=== PATIENT | male | born 1955 | race Caucasian/White ===

== ENCOUNTER → 2019-06-01 | Outpatient (CLI) | payer MEDICARE ==
--- NOTE | 2019-06-02 04:47 | CT ---
EXAMINATION TYPE: CT angio thor/abd pel aorta DATE OF EXAM: 06/01/2019 COMPARISON: None HISTORY: 64-year-old male with abdominal aortic aneurysm without rupture, Aneurysm, Hx of stent sx. TECHNIQUE: Contiguous axial scanning of the chest, abdomen, and pelvis performed with IV Contrast, pa tient injected with 100 mL of Isovue 370. Delayed scan through the patient's abdominal aortic stent g raft. Coronal/sagittal reconstructions performed. 3-D reconstructions generated on a dedicated [employer] workstation. CT DLP: 1080 mGycm Automated exposure control for dose reduction was used. FINDINGS: Chest: Heart normal size without pericardial effusion. Scattered coronary vessel calcifications are present. Moderate bilateral gynecomastia. No thoracic lymphadenopathy. Left anterior chest wall AICD generator with right ventricular lead. Thoracic aorta normal caliber with conventional arch vessel branching anatomy and scattered mild pros tatic calcifications. Mild diffuse bronchial wall thickening without consolidation or pleural effusion. 4 mm pulmonary nodule posterior right mid to lower lung, axial image 39. Some additional lobulated 8 mm subpleural nodularity at the same level in the right lower lobe. A 5 mm in adjacent 4 mm pulmonary nodule along the minor fissure, axial image 29 and 30. Findings can be reassessed in 6 months. ABDOMEN: Arterial phase imaging of the liver, gallbladder, adrenal glands, right kidney, spleen, and pancreas show no gross abnormal mobility. A couple subcentimeter hypodensities along the lower pole cortex of the left kidney 2 small fragments in relation, likely cysts. No dilated small bowel, free fluid, or free air. No mesenteric or retroperitoneal lymphadenopathy. Normal appendix. Mild stool burden. Left-sided colonic diverticulosis, greatest in the sigmoid colon where long segment circumferential wall thickening is present. No surrounding inflammatory fat strand ing. Pelvis: Bladder is urine distended. A few pelvic phleboliths. Prostate gland measures 4.4 cm wide. No abnorma l fluid collection in the pelvis or pelvic lymphadenopathy. ABDOMINOPELVIC VASCULATURE: Upper abdominal aorta borderline ectatic at 2.5 cm. Mild to moderate atherosclerotic narrowing at the origin of celiac axis. Mild atherosclerotic narrowing at the origin of the SMA. Abdominal aortobiiliac stent graft begins at the level of the renal arteries. Maximal stent graft axel meter is 3.1 cm. Just below, maximal stebbins sac diameter is 4.2 x 2.9 cm. No abnormal contrast extens ion seen within the stebbins sac. Along the right iliac landing zone, an additional common iliac artery stent is demonstrated. Bones: Patchy AVN changes suggested along the anterior femoral heads on both sides. No subarticular collapse is seen. Degenerative changes in the hips and left SI joint. Facet arthropathy mid to lower lumbar s pine. [facility] in the mid to lower thoracic spine. IMPRESSION: 1. ABDOMINAL AORTOBIILIAC ENDOVASCULAR STENT GRAFT BEGINNING AT THE LEVEL OF THE RENAL ARTERIES. MAXI MAL STENT GRAFT DIAMETER IS 3.1 CM. 2. JUST BELOW, MAXIMAL L[place] SAC DIAMETER IS 4.2 X 2.9 CM. THIS CAN BE COMPARED TO ANY AVAILABLE OUT SIDE PRIORS. 3. AN ADDITIONAL PATENT RIGHT COMMON ILIAC ARTERY STENT WITHIN THE STENT GRAFT. 4. A FEW RIGHT-SIDED PULMONARY NODULES, LARGEST MEASURING [address] IN 6-[address] IN 1 8-24 MONTHS IS RECOMMENDED PER CURRENT FLEISCHNER GUIDELINES. 5. LEFT-SIDED COLONIC DIVERTICULOSIS, GREATEST IN THE SIGMOID COLON WHERE LONG SEGMENT CIRCUMFERENTIA L WALL THICKENING IS PRESENT. FINDINGS SUGGEST CHRONIC DIVERTICULITIS. CLINICALLY CORRELATE.
== END | disposition home or self-care (01) ==
LOC: RADCTMAIN 13:10
PROVIDERS: ATTEND Internal Medicine Interventional Cardiology
DX: K57.30 Diverticulosis of large intestine without perforation or abscess without bleeding (principal); R91.8 Other nonspecific abnormal finding of lung field; Z95.828 Presence of other vascular implants and grafts
CPT/HCPCS: 82565; 84520; 71275; 36415; 74174; Q9967

== ENCOUNTER → 2022-05-09 | Outpatient (CLI) | payer MEDICARE ==
[2022-05-09 14:27] LABS: Basophils # (A) 0.05 X 10*3/uL (0.00-0.10); Basophils % (A) 0.6 %; Eosinophils # (A) 0.29 X 10*3/uL (0.04-0.35); Eosinophils % (A) 3.5 %; HGB 12.8 g/dL (13.0-17.0); Immature Grans, Automated 0.4 %; Lymphocytes # (A) 2.22 X 10*3/uL (0.90-5.00); Lymphocytes % (A) 27.1 %; MCH 32.5 pg (27.0-32.0); MCHC 33.7 g/dL (32.0-37.0); MCV 96.4 fL (80.0-97.0); Mean Platelet Volume 9.6 fL (9.5-12.2); Monocytes # (A) 0.88 X 10*3/uL (0.20-1.00); Monocytes % (A) 10.7 %; NRBC Per 100 WBC 0 /100 WBCS (0.0-0.0); Neutrophils # (A) 4.72 X 10*3/uL (1.80-7.70); Neutrophils % (A) 57.7 %; Platelet Count 226 X 10*3/uL (140-440); RBC 3.94 X 10*6/uL (4.40-5.60); RDW 13.4 % (11.5-14.5); WBC 8.19 X 10*3/uL (4.50-10.00)
[2022-05-09 14:47] LABS: African American GFR (CKD) 100.6 (60.0-200.0); BUN/Creat Ratio 25.22 Ratio (12.00-20.00); Blood Urea Nitrogen 22.7 mg/dL (9.0-27.0); Calcium 9.8 mg/dL (8.7-10.3); Carbon Dioxide 25.5 mmol/L (20.0-27.5); Chloride 101 mmol/L (96-109); Glucose 158 mg/dL (70-110); Non-African American GFR(CKD) 86.8 (60.0-200.0); Potassium 4.4 mmol/L (3.5-5.5); Sodium 138 mmol/L (135-145)
== END | disposition home or self-care (01) ==
LOC: LABWHC1 08:57
PROVIDERS: ATTEND Internal Medicine Interventional Cardiology
DX: I25.10 Atherosclerotic heart disease of native coronary artery without angina pectoris (principal); R53.83 Other fatigue
CPT/HCPCS: 36415; 80048; 84443; 85025

== ENCOUNTER → 2022-05-29 | Outpatient (CLI) | payer MEDICARE ==
[2022-05-29 13:18] LABS: African American GFR (CKD) >90 (>60 ml/min/1.73 sqM); Blood Urea Nitrogen 36 mg/dL (9-20); Non-African American GFR(CKD) 80 (>60 ml/min/1.73 sqM)
--- NOTE | 2022-05-29 22:35 | CT ---
EXAMINATION TYPE: CT angio abdomen pelvis DATE OF EXAM: 05/29/2022 COMPARISON: Prior CTA June 01, 2019 HISTORY: Abdominal Aortic Aneurysm without rupture CT DLP: 1975.0 mGycm, Automated Exposure Control for Dose Reduction was Utilized. CONTRAST: CTA scan of the abdomen and pelvis is performed without oral and without and with IV Contrast, patien t injected with 100 ml mL of Isovue 370. Stent graft protocol with 3-D reconstructed images created o n an independent workstation and reviewed FINDINGS: VASCULAR: Stent graft begins just below the SMA. There is patent celiac artery and SMA redemonstrated just above this. Aortobiiliac stent graft for AAA measuring up to 3.2 cm transversely axial image 11 0 is identified. Patency of the stent graft seen without contrast opacification outside stent graft t o suggest endoleak. There is AP diameter up to 3.1 cm axial image 88 series 7. Aorta measures 3.1 x 3 .2 cm axial image 107. LUNG BASES: Partial visualization of right-sided pacemaker/defibrillator lead. Some calcification in the left ventricular apex with mild to moderate left ventricular dilatation is redemonstrated. Tyler ry artery calcification again seen in the distal RCA distribution. LIVER/GB: No significant abnormality is appreciated. PANCREAS: No significant abnormality is seen. SPLEEN: No significant abnormality is seen. ADRENALS: No significant abnormality is seen. KIDNEYS: Occasional small simple appearing thin-walled cysts scattered throughout the left kidney. BOWEL: Scattered colonic diverticula most prominent in the sigmoid colon. PROSTATE/SEMINAL VESICLES: No gross abnormality seen. LYMPH NODES: No greater than 1cm abdominal or pelvic lymph nodes are appreciated. OSSEOUS STRUCTURES: Mild to moderate multilevel anterior and lateral spurring. 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 No bony fragmentation seen. OTHER: No significant additional abnormality is seen. IMPRESSION: Patent aortobiiliac stent graft through small AAA is redemonstrated. No CTA evidence for endoleak. No significant change from prior CT.
== END | disposition home or self-care (01) ==
LOC: RADCTMAIN 12:38
PROVIDERS: ATTEND Internal Medicine Interventional Cardiology
DX: I71.40 Abdominal aortic aneurysm, without rupture, unspecified (principal)
CPT/HCPCS: 82565; 84520; 36415; 74174; Q9967